=== PATIENT | female | born 1980 | race African-American/Black ===

== ENCOUNTER 2019-12-03 10:34 | Emergency (ER) | payer BC, MEDICAID ==
[~2019-12-03] VITALS: Ht 157.5 cm; Wt 54.5 kg
[2019-12-03] MEDS ORDERED: IBUPROFEN 600MG TABLET PO ONE (12:30)
[2019-12-03 13:48] VITALS: BP 111/61
== END 2019-12-03 13:50 | disposition home or self-care (01) ==
LOC: ER 10:34
DX: M79.601 Pain in right arm (principal); V43.62XA Car passenger injured in collision with other type car in traffic accident, initial encounter; Y93.89 Activity, other specified; Y92.410 Unspecified street and highway as the place of occurrence of the external cause
CPT/HCPCS: 73030; 73060; 73080; 99284